=== PATIENT | female | born 1950 | race Caucasian/White ===

== ENCOUNTER 2018-07-26 12:48 | Inpatient (IN) ==
--- NOTE | 2018-07-26 14:11 | Diag Imaging Result Doc PS360 ---
EXAM: FLAT/UPRIGHT ABD/1 VIEW CHEST HISTORY: abd pain hx diverticulitis TECHNIQUE: Flat and upright with chest, four views COMPARISON: 06/18/2014 FINDINGS: The lungs are well expanded. No cardiomegaly. No pneumonia. No free air beneath the diaphragm. The gallbladder has been removed. No bowel obstruction. No organomegaly. No abnormal abdominal calcifications. Moderate degenerative spine changes. There are several pelvic phleboliths. IMPRESSION: No acute abnormality. Electronically signed by Oneil Cordoba 07/26/2018 2:09 PM
[2018-07-26 14:30] LABS: BASO# 0.04 X1000 (0.0-0.2); BASO% 0.3 % (0.0-0.8); EOS# 0.18 X1000 (0.0-0.7); EOS% 1.2 % (0.0-10.0); HEMATOCRIT 39.1 % (37.0-47.0); HEMOGLOBIN 13.1 g/dL (12.0-16.0); IMM GRAN# 0.04 X1000 (0.0-0.04); IMM GRAN% 0.3 % (0.0-0.5); LYMPH# 3.47 X1000 (1.2-3.4); LYMPH% 23.9 % (20.5-51.1); MCH 27.6 PG (27-31); MCHC 33.5 g/dL (33-37); MCV 82.5 FL (81-99); MONO# 1.16 X1000 (0.11-0.59); MPV 9.7 FL (7.4-10.4); NEUT# 9.63 X1000 (1.4-6.5); NEUT% 66.3 % (42.2-75.2); PLT 189 X1000 (130-400); RBC 4.74 XMIL (4.2-5.4); RDW 14.4 % (11.5-14.5); WBC 14.52 X1000 (4.8-10.8)
[2018-07-26 14:47] LABS: AGAP 18; ALBUMIN 4.4 g/dL (3.5-5.0); ALKALINE PHOSPHATASE 122 U/L (32-104); BUN 11 mg/dL (8-22); CALCIUM 9.8 mg/dL (8.8-10.2); CHLORIDE 96 mmol/L (98-107); COSMO 274; CREATININE 0.4 mg/dL (0.5-0.9); ESTIMATED GFR > 60; GLUCOSE 143 mg/dL (70-104); GOT 22 U/L (10-30); GPT 27 U/L (10-36); LIPASE 32 U/L (13-60); POTASSIUM 4.3 mmol/L (3.5-5.1); SODIUM 136 mmol/L (136-145); TCO2 21 mmol/L (25-35)
[2018-07-26 14:48] LABS: BILIRUBIN URINE NEGATIVE (NEGATIVE); BLOOD URINE NEGATIVE (NEGATIVE); CLARITY CLEAR (CLEAR); COLOR YELLOW; GLUCOSE URINE NEGATIVE (NEGATIVE); KETONE URINE TRACE mg/dL (NEGATIVE); LEUKOCYTES URINE TRACE (NEGATIVE); NITRITE URINE NEGATIVE (NEGATIVE); PROTEIN URINE TRACE mg/dL (NEGATIVE); SP GRAVITY URINE 1.025; UROBILINOGEN URINE NORMAL
[2018-07-26 15:03] LABS: URINE SOURCE CLEAN CATCH
[2018-07-26 15:04] LABS: URINE BACTERIA 1+ /HFP; URINE CAST NONE SEEN /LPF; URINE CRYSTAL NONE SEEN /HPF; URINE EPITHELIAL CELLS >10 /HPF (<10); URINE RBC <10 /HPF (<10); URINE WBC <10 /HPF (<10); URINE YEAST NONE SEEN /HPF
--- NOTE | 2018-07-26 16:34 | Diag Imaging Result Doc PS360 ---
EXAM: CT ABD/PELVIS W/IV CONT ONLY HISTORY: pain TECHNIQUE: CT abdomen and pelvis with contrast COMPARISON: None. FINDINGS: The gallbladder has been removed. The spleen is enlarged measuring 16.0 cm in AP diameter. Mild fatty infiltration of the liver. Normal pancreas and adrenal glands. Normal kidneys. No hydronephrosis. No aortic aneurysm. Moderate atherosclerosis. There are small para-aortic nodes. No bowel obstruction. There are scattered colonic diverticula with adjacent inflammation about the mid sigmoid colon. Mild sigmoid wall thickening. No adjacent abscess. No free air. The urinary bladder is mildly distended. Uterus is small and contains several calcified fibroids. Neither ovary is enlarged. IMPRESSION: 1.Sigmoid diverticulitis 2.Cholecystectomy 3.Mild fatty infiltration of the liver 4.Splenomegaly similar to the prior study This exam was performed using automated exposure control, adjustment of mA or kV according to patient size, and/or use of iterative reconstruction technique. Electronically signed by Oneil Cordoba 07/26/2018 4:31 PM
[2018-07-26] MEDS ORDERED: FLAGYL PO ONE (18:46)
[2018-07-26] MEDS ORDERED: LEVAQUIN 750 MG/D5W 750 MG/150 ML IVPB IV ONE (18:46)
[2018-07-26] MEDS ORDERED: NS 1,000 ML IV ONE (18:46)
[2018-07-26] MEDS ORDERED: DILAUDID IV PRN (20:07)
[2018-07-26] MEDS ORDERED: TYLENOL PO PRN (21:16)
[2018-07-26] MEDS ORDERED: ZOFRAN IV PRN (21:16)
[2018-07-26] MEDS ORDERED: NS 1,000 ML IV SCH (21:30)
[2018-07-26] MEDS ORDERED: MAG-OX PO SCH (21:45)
--- NOTE | 2018-07-26 22:16 | HISTORY AND PHYSICAL ---
CHIEF COMPLAINT: Nausea. HISTORY OF PRESENT ILLNESS: The patient is a very pleasant 67-year-old female who presented to the hospital with suprapubic and right lower quadrant pain since Saturday. Pain continued to worsen. Denies any fevers, chills, has had some nausea. Denies hematemesis, hematochezia, melena. Does have a history of diverticulosis per previous colonoscopy by Dr. Santillan, and history of frequent urinary tract infections. ALLERGIES: Shellfish vomiting. Morphine, causing vomiting. MEDICATIONS: Aspirin, biotin, lisinopril 10, Zocor 10, CoQ10, 100 at bedtime, magnesium at bedtime, Trulicity weekly, metformin 1000 b.i.d. PAST MEDICAL HISTORY: 1. Diabetes. 2. Hypertension. 3. She has had a right knee replacement and revision secondary to femur fracture. 4. High cholesterol. 5. Known coronary artery disease status post [place]. FAMILY HISTORY: Noncontributory. REVIEW OF SYSTEMS: As noted above. Positive for abdominal pain, right lower quadrant mainly, although diffusely, hurts worse when she eats. She does have a history of frequent UTIs, although currently denies any burning, itching, frequency, or discharge. Denies any hematuria, hematochezia, melena. Denies chest pain, palpitations. Denies fevers, chills. Denies headaches, change in her vision. Denies any focalized weakness. Denies any swelling in her extremities. FAMILY HISTORY: Noncontributory. SOCIAL HISTORY: Patient denies smoking. Does not use alcohol. Does not take any illicit substances. PHYSICAL EXAM: VITAL SIGNS: Temperature 98.9, pulse 97, respiratory 18, BP 145/84, saturation 95% on room air. GENERAL: Patient is awake, alert, very pleasant. She is in no current respiratory distress. HEENT: Normocephalic. NECK: Supple. CARDIOVASCULAR: Regular rate. No murmurs. CHEST: Clear, nonlabored. ABDOMEN: Soft nondistended, diffusely tender, more so in the right lower quadrant. Positive bowel sounds, although decreased. EXTREMITIES: Moves all extremities. No edema. NEUROLOGIC: No focal changes. SKIN: Warm, dry. No rashes. LABS: WBC is 14. Glucose 143. ASSESSMENT: 1. Diverticulitis. 2. Leukocytosis. 3. Diabetes with mild hyperglycemia. 4. Hypertension. 5. Known coronary artery disease, stable. PLAN: We will admit patient the hospital, place her on a liquid diet currently, IV fluids. We will use Dilaudid for pain control. Place her on Levaquin and Flagyl and will follow. cc: Messi Reddy MD
[2018-07-26] MEDS: FLAGYL 500 MG/NS 500 MG/100 ML IVPB IV SCH (23:15)
[2018-07-27] MEDS: FLAGYL 500 MG/NS 500 MG/100 ML IVPB IV SCH (03:13)
[2018-07-27 05:23] VITALS: BP 143/70
[2018-07-27 06:09] LABS: HEMATOCRIT 35.9 % (37.0-47.0); HEMOGLOBIN 11.8 g/dL (12.0-16.0); MCH 27.4 PG (27-31); MCHC 32.9 g/dL (33-37); MCV 83.5 FL (81-99); MPV 9.8 FL (7.4-10.4); RBC 4.3 XMIL (4.2-5.4); RDW 14.3 % (11.5-14.5); WBC 11.15 X1000 (4.8-10.8)
[2018-07-27 06:25] LABS: HEMOGLOBIN A1C 7.2 % (4.8-6.0)
[2018-07-27 06:32] LABS: AGAP 13; ALBUMIN 3.8 g/dL (3.5-5.0); ALKALINE PHOSPHATASE 125 U/L (32-104); BUN 8 mg/dL (8-22); CALCIUM 8.6 mg/dL (8.8-10.2); CHLORIDE 98 mmol/L (98-107); COSMO 270; CREATININE 0.4 mg/dL (0.5-0.9); ESTIMATED GFR > 60; GLUCOSE 153 mg/dL (70-104); GOT 18 U/L (10-30); GPT 21 U/L (10-36); MAGNESIUM 1.5 mg/dL (1.5-2.7); SODIUM 134 mmol/L (136-145); TCO2 24 mmol/L (25-35); TOTAL PROTEIN 7.1 g/dL (6.3-8.3)
[2018-07-27] MEDS ORDERED: PRINIVIL PO SCH (09:00)
[2018-07-27] MEDS ORDERED: FLAGYL PO SCH (13:00)
[2018-07-27] MEDS ORDERED: LEVAQUIN 500 MG/D5W 500 MG/100 ML IVPB IV SCH (18:00)
--- NOTE | 2018-07-28 01:51 | DISCHARGE SUMMARY ---
ADMISSION DATE: 07/26/2018 DISCHARGE DATE: 07/27/2018 DISCHARGE DIAGNOSES: 1. Diverticulitis. 2. Hypertension. 3. High cholesterol. 4. Diabetes. CONSULTATIONS: None. PROCEDURES: None. BRIEF HOSPITAL COURSE: The patient is a 67-year-old female who presented to the hospital, treated in usual fashion, placed on her home medications after 24 hours. Initially, she was kept NPO except for liquids. On discharge, she is awake, alert. She is tolerating her medications, tolerating a soft diet. Notes that she is feeling tremendously better, has not taken any pain medication, is asking to go home. DISPOSITION: Patient will be discharged home. She will continue her home medications as listed on HPI dated 07/26/2018 with the addition of Flagyl 500 t.i.d. and Cipro 500 b.i.d. for 6 more days. TIME SPENT: Greater than 30 minutes was spent in total care. cc: Messi Reddy MD
== END 2018-07-27 11:16 | disposition home or self-care (01) | DRG 392 ==
LOC: P.ED 12:48 → SUATTDRO 18:27 → P.MEDSURG 18:27
PROVIDERS: ADMIT Family Medicine; ATTEND Family Medicine
CPT/HCPCS: 74022; 74177; 80053; 81001; 82150; 82948; 83036; 83690; 83735; 85025; 85027; 87088; A9270; J1170; J1956; J7030; Q9967; S0030; XXXXX